=== PATIENT | female | born 1995 | race Caucasian/White ===

== ENCOUNTER → 2020-05-31 08:50 | Outpatient (CLI) | payer OTHER, SELFPAY ==
[2020-05-31] MEDS: COVID-19 VACC #1, MRNA(MOD) 100 MCG/0.5 ML VIAL IM (08:55)
== END ==
PROVIDERS: Visit Provider Internal Medicine
DX: Z23 Encounter for immunization (principal)
CPT/HCPCS: 0011A; 91301

== ENCOUNTER → 2020-06-28 09:09 | Outpatient (CLI) | payer OTHER, SELFPAY ==
[2020-06-28] MEDS: COVID-19 VACC #2, MRNA(MOD) 100 MCG/0.5 ML VIAL IM (09:15)
== END ==
PROVIDERS: Visit Provider Internal Medicine
DX: Z23 Encounter for immunization (principal)
CPT/HCPCS: 0012A; 91301

== ENCOUNTER → 2021-03-28 08:01 | Outpatient (CLI) | payer OTHER, SELFPAY ==
[2021-03-28 19:31] LABS: Vitamin D 25 Hydroxy (D3) 46.2 ng/mL (30.0-100.0)
[2021-03-28 19:44] LABS: TSH w/ Reflex to FT4 2.06 uIU/mL (0.47-4.68)
== END ==
PROVIDERS: PCP Physician Assistant Medical; Visit Provider Physician Assistant Medical
DX: R63.5 Abnormal weight gain (principal); F34.1 Dysthymic disorder
CPT/HCPCS: 82306; 84443

== ENCOUNTER → 2021-07-04 10:07 | Outpatient (CLI) | payer OTHER, SELFPAY ==
[2021-07-04 19:31] LABS: Add Manual Diff / Slide Review NO; Basophils Absolute Auto 0 /uL (0-100); Basophils Percent Auto 0.6 % (0-2); Eosinophils Absolute Auto 100 /uL (0-450); Eosinophils Percent Auto 2.3 % (2-4); Hematocrit 41.9 % (36-46); Hemoglobin 14.3 g/dL (12.0-16.0); Lymphocytes Absolute Auto 1500 /uL (1100-4500); Mean Corpuscular HGB Conc 34.2 % (30-36); Mean Corpuscular Hemoglobin 30.8 PG (26-34); Mean Corpuscular Volume 90.3 fL (80-100); Monocytes Absolute Auto 400 /uL (0-900); Monocytes Percent Auto 7.6 % (3-14); Neutrophils Absolute Auto 3400 /uL (1500-7000); Neutrophils Percent Auto 61.5 % (50-75); Platelet Count 261 X10^3/uL (150-400); Red Blood Cell Count 4.64 X10^6/uL (4.0-5.2); Red Cell Distribution Width 12.4 % (11.6-14.8); White Blood Cell Count 5.5 X10^3/uL (4.5-11.0)
[2021-07-04 19:37] LABS: Alanine Aminotransferase 20 IU/L (<35); Albumin 4.2 g/dL (3.5-5.0); Albumin Globulin Ratio 1.6 (1.0-2.8); Alkaline Phosphatase 55 U/L (38-126); Aspartate Aminotransferase 28 IU/L (14-36); BUN Creatinine Ratio 11.8 (6-22); Bilirubin Total 0.5 mg/dL (0.2-1.3); Blood Urea Nitrogen 10 mg/dL (7-17); Calcium 9.5 mg/dL (8.4-10.2); Carbon Dioxide 28 mmol/L (22-32); Chloride 106 mmol/L (98-107); Estimated Glomerular Filt Rate > 60 mL/min (>60); Globulin 2.6 g/dL (1.7-4.1); Glucose 99 mg/dL (70-100); HEMOLYSIS < 15 (0-50); Potassium 4.1 mmol/L (3.4-5.1); Sodium 140 mmol/L (137-145); Total Protein 6.8 g/dL (6.3-8.2)
== END ==
PROVIDERS: PCP Physician Assistant; Visit Provider Physician Assistant
DX: F34.1 Dysthymic disorder (principal); F41.9 Anxiety disorder, unspecified; R63.5 Abnormal weight gain
CPT/HCPCS: 80053; 85025

== ENCOUNTER → 2021-09-29 16:30 | Outpatient (CLI) | payer OTHER, SELFPAY ==
--- NOTE | 2021-09-29 16:31 | DIET.CONS ---
Dietary Consultation Note Assessment: 26y F attending telehealth visit for help managing 40# weight gain after going on medication for anxiety. Looking for low calorie and fast items for dinners when she is getting home late or tired. Pt was on Paxatine for anxiety which caused weight gain, currently on Wellbutrin 150mg bid. Started NOOM about a year ago, has goal to get to 230# for now. 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 Pt does variety of shifts during day, opening or day, works Wednesday through . Usual Day: wakes 5 or 7am B: bowl cereal (Cheerios), 2% milk, berries, coffee c small amount of creamer or if not so busy- breakfast burrito (eggs, 1 slice jacobson, shredded potato, ketchup) doesn't snack at work- usually has water, sometimes piece fruit. L: doesn't pack a lunch- grabs salad or hot food or sandwich- c 8oz Dr. Coleman usually gets off work 4-6pm D: salads or stir fries (veggie forward-peppers, broccoli c beef or chicken), sometimes frozen pizza. trying not to snack after dinner- sometimes [employer]. Before anxiety was well managed, noticed she would eat less on work days but more on days off. Pt was doing gym daily- spin classes, strength training. Stopped recently due to 's health issues- back injury requiring surgery. Pt with barriers to meal prepping especially as the work week progresses. RD Impression: Pt with medication related weight gain. Pt already losing weight using NOOM bethany and restricting snacking along with medication change. Pt defaulting to pizza for dinner though she does have a meal plan often during late part of work week. Pt desires support around quick, easy dinners to lose 40#. Nutrition Diagnosis: abnormal weight gain r/t medication side effects aeb pt reports 50# weight gain over past 2y, pt with weight gain from anti-anxiety meds, BMI 32. Interventions: 1. Reinforced good effort pt is employing as well as use of NOOM bethany. 2. Provided education on strategies to cook healthy meals when tired or crunched on time: pre chop veggies, less involved dinners later in week... 3. Provided pt meal plan template. 4. Provided pt links to [employer] for 10 and 20 minute dinners. Monitoring/Evaluations: telehealth f/u in 4w to assess progress and problem solve barriers. Electronically Signed by: Shalini Mujica 09/29/21 16:31 Clinical Dietitian [address] [address]
== END ==
PROVIDERS: PCP Physician Assistant; Referring Provider Physician Assistant; Visit Provider Physician Assistant
DX: R63.5 Abnormal weight gain (principal); Z71.3 Dietary counseling and surveillance; Z68.32 Body mass index [BMI] 32.0-32.9, adult; F41.9 Anxiety disorder, unspecified
CPT/HCPCS: 97802

== ENCOUNTER → 2021-10-27 17:16 | Outpatient (CLI) | payer OTHER, SELFPAY ==
--- NOTE | 2021-10-27 17:18 | DIET.OUTPTC ---
Dietary Outpatient Consultation Note Consultation Date: 10/27/2021 Pt at home office, RD in hospital office, using [employer] video conferencing, pt agrees to this format. 26y F attending telehealth RD f/u for help with medication induced weight gain. Pt reports current weight of 233-234# (-3-4# in 4w)/ Pt reports people are commenting that she is looking really healthy, pt fitting into clothes that haven't fit since earlier this year. Pt states her current weight goal of 190# based on BMI scale. She does not know where she will feel the healthiest if here or a higher weight. Pt has not been able to do meal planning for dinners because has had out of town guests and her had his big back surgery. Pt states it is okay, however, as the family that was visiting eats healthy food grown in their garden. Pt has implemented some of the substitutions we discussed including Carb balance tortillas which she likes. Interventions: 1. Discussed BMI scale related to pts 6'1 frame. Encouraged pt to rely less on BMI as she is not the best BMI candidate. Discussed non-BMI metrics for health such as self confidence, physical ability, laboratory values, BP. encouraged pt to check in with self every 5#s lost. 2. Collaborated c pt on plan to start meal planning. Pt will meal plan on , purchase all supplies on Fridays for 3 dinners per week. Pt will use [employer] to find recipes. F/u via telehealth in 6w to continue accountability checks. Electronically Signed by: Shalini Mujica 10/27/21 17:18 Clinical Dietitian [address] [id number]
== END ==
PROVIDERS: PCP Physician Assistant; Referring Provider Physician Assistant; Visit Provider Physician Assistant
DX: R63.5 Abnormal weight gain (principal); T50.905A Adverse effect of unspecified drugs, medicaments and biological substances, initial encounter; Z71.3 Dietary counseling and surveillance
CPT/HCPCS: 97803

== ENCOUNTER → 2021-12-08 17:17 | Outpatient (CLI) | payer OTHER, SELFPAY | PROVIDERS: PCP Physician Assistant; Referring Provider Physician Assistant; Visit Provider Physician Assistant | DX: Z71.3 Dietary counseling and surveillance (principal) | CPT/HCPCS: 97802 ==

== ENCOUNTER → 2024-09-21 09:22 | Outpatient (CLI) | payer OTHER, SELFPAY ==
[2024-09-21 19:35] LABS: Add Manual Diff / Slide Review NO; Hematocrit 42.2 % (36-46); Hemoglobin 14.6 g/dL (12.0-16.0); Lymphocytes Absolute Auto 1600 /uL (1100-4500); Mean Corpuscular HGB Conc 34.5 % (30-36); Mean Corpuscular Hemoglobin 31.8 PG (26-34); Mean Corpuscular Volume 92.0 fL (80-100); Platelet Count 251 X10^3/uL (150-400)
[2024-09-21 19:45] LABS: Alanine Aminotransferase 25 IU/L (<35); Albumin 4.2 g/dL (3.5-5.0); Albumin Globulin Ratio 1.6 (1.0-2.8); Alkaline Phosphatase 62 U/L (38-126); Blood Urea Nitrogen 10 mg/dL (7-17); Calcium 9.6 mg/dL (8.4-10.2); Carbon Dioxide 25 mmol/L (22-32); Chloride 105 mmol/L (98-107); Cholesterol 153 mg/dL (140-199); Estimated Glomerular Filt Rate > 60 mL/min (>60); Globulin 2.6 g/dL (1.7-4.1); Glucose 88 mg/dL (70-99); HDL Cholesterol 65 mg/dL (40-60); HEMOLYSIS 17 (0-50); Potassium 4.3 mmol/L (3.4-5.1); Sodium 138 mmol/L (137-145); Total Protein 6.8 g/dL (6.3-8.2); Triglycerides 73 mg/dL (35-150)
[2024-09-21 20:15] LABS: TSH w/ Reflex to FT4 2.05 uIU/mL (0.47-4.68)
== END ==
PROVIDERS: PCP Physician Assistant; Visit Provider Physician Assistant
DX: I10 Essential (primary) hypertension (principal); R63.5 Abnormal weight gain; F41.9 Anxiety disorder, unspecified; Z13.6 Encounter for screening for cardiovascular disorders
CPT/HCPCS: 80053; 80061; 84443; 85025